=== PATIENT | female | born 1955 | race Caucasian/White ===

== ENCOUNTER → 2016-06-04 | Outpatient (CLI) | payer MEDICAID ==
[~2016-06-04] MED LIST: ALEVE220 MG PO; LORTAB 5/500 501 TAB PO
== END ==
LOC: RT 09:45
DX: J44.9 Chronic obstructive pulmonary disease, unspecified (principal); J43.9 Emphysema, unspecified

== ENCOUNTER → 2016-11-19 | Outpatient (CLI) | payer MEDICAID ==
[~2016-11-19] MED LIST changes: +ADVAIR DISK28 PUFFS IN; +DICLOFENAC 50MG50 MG PO; +FLUTICASONE 50M16 GM; +GABAPENTIN300 MG PO; +LISINOPRIL/HCTZ1 TA3 FT; +LORATADINE 10MG10 M1 PO; +MIRTAZAPINE15 M1 PO; +NORCO 325 MG-51 TAB PO; +PROTONIX40 MG/PACK PO; +SEROQUEL XR200 MG PO; +TRILEPTAL300 M1 PO; +VOLTAREN100 GM TP
[2016-11-19 11:22] LABS: LYMPH # 2.4 K/mm3 (0.7-4.5); LYMPH % 33.6 % (10-50.0)
[2016-11-19 14:52] LABS: BUN 11 mg/dL (7-18)
[2016-11-19 14:54] LABS: GFR (ESTIMATED) 85 ML/MIN (59-)
== END ==
LOC: LAB 10:57
PROVIDERS: Psychiatry & Neurology Psychiatry
DX: F31.0 Bipolar disorder, current episode hypomanic (principal)